=== PATIENT | male | born 1975 | race Caucasian/White ===

== ENCOUNTER 2025-06-18 20:16 | Emergency (ER) | payer BC ==
[2025-06-18] MEDS ORDERED: ONDANSETRON 4 MG/2 ML VIAL ONE (20:41)
[2025-06-18] MEDS ORDERED: NA CHLORIDE 0.9% 1,000 ML ONE (20:42)
[2025-06-18] MEDS ORDERED: KETOROLAC 30 MG/ML INJ ONE (20:42)
[2025-06-18 21:06] LABS: Absolute Lymphocytes (CBC) 1.0 K/uL (0.7-4.9); Hematocrit 45.6 % (39.6-49.0); Hemoglobin 15.3 g/dL (13.6-17.9); MCH 30.7 pg (27.0-35.0); MCHC 33.6 g/dL (32.0-36.0); MCV 91.2 fL (80-100); MPV 8.0 fL (7.6-11.3); Nucleated RBC Absolute Count 0.0 (0-0); Nucleated Red Blood Cells % 0.0 % (0-0); RBC Red Blood Cell Count 5.00 M/uL (4.33-5.43); White Blood Count 10.40 thou/uL (4.3-10.9)
[2025-06-18 21:38] LABS: ALT/SGPT 17 U/L (16-61); Albumin 3.4 g/dL (3.4-5.0); Albumin/Globulin Ratio 0.8 (1.1-1.8); Alkaline Phosphatase 75 U/L (45-117); Anion Gap 8.1 mEq/L (5.0-15.0); BUN Blood Urea Nitrogen 10 mg/dL (7-18); Globulin 4.2 g/dL (2.3-3.5); Glucose Level 122 mg/dL (74-106); Lipase 46 U/L (13-75); Potassium 4.1 mEq/L (3.5-5.1)
[2025-06-18 21:39] LABS: AST/SGOT < 10 U/L (15-37)
--- NOTE | 2025-06-18 22:01 | RAD REPORT ---
EXAMINATION: US Abdomen Exam Limited CLINICAL HISTORY: [facility] MAIN pain COMPARISON: None. TECHNIQUE: Limited upper abdominal grayscale and color flow sonographic images. FINDINGS: Gallbladder: Small echogenic calculi and sludge. Gallbladder wall is not thickened, 2 mm. No perichol ecystic fluid. Negative sonographic Huerta sign. Bile ducts: No intrahepatic or extrahepatic biliary dilatation. Common bile duct measures 4 mm. Liver: Visualized portions of the liver demonstrate normal echogenicity with no suspicious findings. Fluid: No ascites. IMPRESSION: Small gallbladder calculi and sludge. No other findings to suggest acute cholecystitis.
--- NOTE | 2025-06-18 22:06 | RAD REPORT ---
EXAMINATION: CT Stone Protocol CLINICAL INDICATION: Male, 50 years old. pain TECHNIQUE: CT abdomen and pelvis was performed, without IV contrast, as per department protocol. Axia l, sagittal and coronal reconstructions were obtained. One or more of the following dose reduction techniques were used: Automated exposure control, adjustment of the mA and kV according to the patien t size, and iterative reconstruction. Unless otherwise specified, incidental findings do not require dedicated imaging follow-up. COMPARISON: No prior exam. FINDINGS: The lack of intravenous contrast limits the sensitivity of this exam for evaluation of solid visceral organs, vascular structures, and retroperitoneum. LOWER CHEST: Trace layering right pleural effusion. Dependent subsegmental airspace opacities. LIVER: Normal in size and contour. No focal lesion. BILIARY SYSTEM: No suspicious abnormalities. SPLEEN: Normal size. No focal lesion. PANCREAS: No mass, ductal dilation, or julia-pancreatic fluid. ADRENALS: Normal; no mass. KIDNEYS AND URETERS: Normal size and contour. No hydronephrosis. URINARY BLADDER: Normal contour. GASTROINTESTINAL TRACT: Sequelae of gastric bypass with moderate sliding hiatal hernia. No evidence o f bowel obstruction, significant free fluid, free air or abscess. Mild sigmoid diverticulosis without evidence of acute diverticulitis. APPENDIX: Normal appendix. LYMPH NODES: No lymphadenopathy. MUSCULOSKELETAL: No acute or suspicious osseous abnormality. ADDITIONAL FINDINGS: None. IMPRESSION: No acute or concerning abnormalities in the abdomen or pelvis, with evaluation limited by lack of IV contrast. No evidence of urinary tract calculi or obstruction. Incidental findings as above, including small right layering pleural effusion with underlying airspac e opacities that could reflect atelectasis or mild pneumonitis.
[2025-06-18 22:36] LABS: Sqamous Epithelial <5 /HPF (None Seen); Urine Culture Reflex Order NOT NEEDED; Urine Microscopic Reflex YN ORDER UMIC
--- NOTE | 2025-06-19 00:58 | EDPHYS ---
Physician Documentation [facility] Name: Migel Urbano Jr Age: 50 yrs Sex: Male : 1975 Arrival Date: 06/18/2025 Time: 20:16 Bed 14 Private MD: ED Physician Deyvi Wray HPI: 06/18 20:36 This 50 yrs old Male presents to ER via Unassigned with complaints of Back Pain, kb Abdominal Pain. 20:36 Patient is a 50-year-old male who presents for right upper quadrant and right flank kb pain. States he had this pain 7 days ago, was seen by PCP and given Toradol and prednisone which took the pain away. States he woke up this morning and the pain was back. Went to neck several urgent care and they told him he had a fever so he needed to come here for evaluation. Denies nausea, vomiting, urinary symptoms. States he has had some diarrhea. States pain improves with pressure. Historical: - Allergies: 20:38 Sulfa (Sulfonamide Antibiotics); ha1 - PMHx: 20:38 Atrial fibrillation; ha1 - Immunization history:: Adult Immunizations up to date. - Infectious Disease History:: Denies. - Social history:: Smoking status: Patient denies any tobacco usage or history of. ROS: 20:36 Constitutional: As per HPI kb Exam: 20:36 Constitutional: This is a well developed, well nourished patient who is awake, alert, kb and in no acute distress. Head/Face: Normocephalic, atraumatic. ENT: Moist Mucous membranes Cardiovascular: Regular rate Respiratory: Respirations even and unlabored. No increased work of breathing. Talking in full sentences Skin: Warm, dry with normal turgor. Normal color. MS/ Extremity: Pulses equal, no cyanosis. Neurovascular intact. Full, normal range of motion. Neuro: Awake and alert, GCS 15, oriented to person, place, time, and situation. 20:36 Abdomen/GI: Inspection: abdomen appears normal, Bowel sounds: normal, Palpation: soft, in all quadrants, mild abdominal tenderness, in the right upper quadrant, 20:36 Back: CVA tenderness, that is mild, is noted on the right, Vital Signs: 20:30 BP 143 / 84; Pulse 92; Resp 17 S; Temp 99.3(O); Pulse Ox 98% on R/A; Weight 111.13 kg; ha1 Height 5 ft. 11 in. ; Pain 7/10; 20:59 BP 127 / 80; Pulse 80; Resp 20; Pulse Ox 100% on R/A; kj2 22:24 BP 113 / 72; Pulse 71; Resp 18; Pulse Ox 98% on R/A; kj2 23:00 BP 120 / 79; Pulse 70; Resp 18; Pulse Ox 97% on R/A; al5 23:15 BP 125 / 87; Pulse 75; Resp 16; Pulse Ox 98% on R/A; al5 20:30 Body Mass Index 34.17 (111.13 kg, 180.34 cm) ha1 20:30 Pain Scale: Adult ha1 MDM: 20:24 Medical Screening Exam initiated kb 20:37 Data reviewed: vital signs, nurses notes. kb 23:03 Differential diagnosis: UTI, kidney stone, cholelithiasis, cholecystitis, muscle kb strain. Counseling: I had a detailed discussion with the patient and/or guardian regarding the historical points, exam findings, and any diagnostic results supporting the discharge/admit diagnosis, lab results, radiology results, the need for outpatient follow up, a family practitioner, to return to the emergency department if symptoms worsen or persist or if there are any questions or concerns that arise at home. ED course: Pt has no cough, congestion or shortness of breath. 06/18 20:35 Order name: IV Saline Lock; Complete Time: 20:51 kb 06/18 20:35 Order name: Labs collected and sent; Complete Time: 20:51 kb Administered Medications: 20:49 Drug: Ondansetron IVP 4 mg IVP once; over 2 minutes Route: IVP; Site: right antecubital;kj2 23:26 Follow up: Response: No adverse reaction al5 20:49 Drug: NS 0.9% IV 1000 ml IV at 1 bolus Per protocol; to be given as a bolus over 60 kj2 minutes Route: IV; Rate: 1 bolus; Site: right antecubital; 23:26 Follow up: Response: No adverse reaction; IV Status: Completed infusion; IV Intake: al5 1000ml 20:50 Drug: TORadol - Ketorolac IVP 15 mg IVP once Route: IVP; Site: right antecubital; kj2 23:27 Follow up: Response: No adverse reaction al5 23:26 Drug: Decadron - Dexamethasone IVP 10 mg IVP once Route: IVP; Site: right antecubital; al5 23:26 Follow up: Response: No adverse reaction al5 Disposition: 06/19 01:15 Co-signature as Attending Physician, Deyvi Wray MD I agree with the assessment sp4 and plan of care. I reviewed the patient's care provided by the Advanced Practice Provider and agree with the diagnosis and treatment plan. Disposition Summary: 06/18/25 23:08 Discharge Ordered Notes: Location: Home kb Condition: Stable kb Diagnosis - Other cholelithiasis without obstruction kb - flank pain kb Followup: kb - With: Emergency Department - When: As needed - Reason: Worsening of condition Followup: kb - With: Private Physician - When: 2 - 3 days - Reason: Recheck today's complaints, Continuance of care, Re-evaluation by your physician Discharge Instructions: - Discharge Summary Sheet kb - Cholelithiasis, [id number] kb - Flank Pain, Adult, [id number] kb Forms: - Medication Reconciliation Form kb - Antibiotic Education kb - Prescription Opioid Use kb - Patient Portal Instructions kb - Leadership Thank You Letter kb Prescriptions: - Diclofenac Sodium 75 mg Oral tablet, delayed release (enteric coated) - take 1 tablet ORAL route 2 times per day As needed; 30 tablet; Refills: 0, kb Product Selection Permitted - orphenadrine citrate 100 mg Oral Tablet Sustained Release - take 1 tablet ORAL route 2 times per day As needed; 20 tablet; Refills: 0, kb Product Selection Permitted Signatures: Tawny Mathis FNP-C FNP-Zuly Washburn, RN RN ha1 Deyvi Wray MD MD sp4 Dianne Vaz RN RN al5 Judy Rasheed RN RN kj2 Corrections: (The following items were deleted from the chart) 06/18 20:39 20:38 Allergies: No Known Allergies; ha1 ha1 23:04 20:36 Patient is a 50-year-old male who presents for right upper quadrant and right kb flank pain. States he had this pain 7 days ago, was seen by PCP and given Toradol and prednisone which took the pain away. States he woke up this morning and the pain was back. Went to neck several urgent care and they told him he had a fever so he needed to come here for evaluation. Denies nausea, vomiting, urinary symptoms. States he has had some diarrhea.. kb
--- NOTE | 2025-06-19 00:58 | ER ---
Nurse's Notes [facility] Name: Migel Urbano Jr Age: 50 yrs Sex: Male : 1975 Arrival Date: 06/18/2025 Time: 20:16 Bed 14 Private MD: Diagnosis: Other cholelithiasis without obstruction;flank pain Presentation: 06/18 20:30 Chief complaint: Patient states: RIGHT FLANK PAIN STARTED LAST WEEK, PRIMARY CARE GAVE ha1 TORADOL AND PREDNISONE SYMPTOMS IMPROVED FOR FEW DAYS THEN YESTERDAYS SYMPTOMS CAME BACK AND ARE WORSE. 20:30 Coronavirus screen: Client denies travel out of the [place] in the last 14 days. Ebola ha1 Screen: No symptoms or risks identified at this time. Initial Sepsis Screen: Does the patient meet any 2 criteria? No. Patient's initial sepsis screen is negative. Does the patient have a suspected source of infection? No. Patient's initial sepsis screen is negative. Risk Assessment: Do you want to hurt yourself or someone else? Patient reports no desire to harm self or others. Onset of symptoms was June 18, 2025. 20:30 Method Of Arrival: Ambulatory ha1 20:30 Acuity: YULIANA 3 ha1 Triage Assessment: 20:38 General: Appears uncomfortable, Behavior is calm, cooperative. Pain: Complains of pain ha1 in posterior aspect of left lateral abdomen Pain currently is 7 out of 10 on a pain scale. Neuro: Level of Consciousness is awake, alert, obeys commands, Oriented to person, place, time, situation. Cardiovascular: Patient's skin is warm and dry. Respiratory: Airway is patent Respiratory effort is even, unlabored, Respiratory pattern is regular, symmetrical. Historical: - Allergies: 20:38 Sulfa (Sulfonamide Antibiotics); ha1 - PMHx: 20:38 Atrial fibrillation; ha1 - Immunization history:: Adult Immunizations up to date. - Infectious Disease History:: Denies. - Social history:: Smoking status: Patient denies any tobacco usage or history of. Screenin:58 [facility] ED Fall Risk Assessment (Adult) History of falling in the last 3 months, kj2 including since admission No falls in past 3 months (0 pts) Confusion or Disorientation No (0 pts) Intoxicated or Sedated No (0 pts) Impaired Gait No (0 pts) Mobility Assist Device Used No (0 pt) Altered Elimination No (0 pt) Score/Fall Risk Level 0 - 2 = Low Risk Maintained a safe environment, Hourly rounding (assess needs \T\ fall precautionary measures) done. Abuse screen: Denies threats or abuse. Denies injuries from another. Nutritional screening: No deficits noted. Tuberculosis screening: No symptoms or risk factors identified. Assessment: 20:45 General: Appears in no apparent distress. Behavior is cooperative. Pain: Complains of kj2 pain in abdomen and posterior aspect of left lateral abdomen and right upper quadrant Pain currently is 6 out of 10 on a pain scale. Neuro: Level of Consciousness is awake, alert, obeys commands, Oriented to person, place, time, situation. Cardiovascular: Patient's skin is warm and dry. Respiratory: Airway is patent Respiratory effort is unlabored. GI: Abdomen is non-distended. : No signs and/or symptoms were reported regarding the genitourinary system. 21:45 Reassessment: Patient appears in no apparent distress at this time. Patient and/or kj2 family updated on plan of care and expected duration. Pain level reassessed. Patient is alert, oriented x 3, equal unlabored respirations, skin warm/dry/pink. Vital Signs: 20:30 BP 143 / 84; Pulse 92; Resp 17 S; Temp 99.3(O); Pulse Ox 98% on R/A; Weight 111.13 kg; ha1 Height 5 ft. 11 in. ; Pain 7/10; 20:59 BP 127 / 80; Pulse 80; Resp 20; Pulse Ox 100% on R/A; kj2 22:24 BP 113 / 72; Pulse 71; Resp 18; Pulse Ox 98% on R/A; kj2 23:00 BP 120 / 79; Pulse 70; Resp 18; Pulse Ox 97% on R/A; al5 23:15 BP 125 / 87; Pulse 75; Resp 16; Pulse Ox 98% on R/A; al5 20:30 Body Mass Index 34.17 (111.13 kg, 180.34 cm) ha1 20:30 Pain Scale: Adult ha1 ED Course: 20:18 Patient arrived in ED. mr 20:24 Tawny Mathis [facility]-C [facility] kb 20:24 Deyvi Wray MD is Attending Physician. kb 20:38 Wili, Judy, RN is Primary Nurse. kj2 20:38 Triage completed. ha1 20:58 Patient has correct armband on for positive identification. Bed in low position. Call kj2 light in reach. Provided Education on: call light. 23:27 No provider procedures requiring assistance completed. IV discontinued, intact, al5 bleeding controlled, No redness/swelling at site. Pressure dressing applied. Administered Medications: 20:49 Drug: Ondansetron IVP 4 mg IVP once; over 2 minutes Route: IVP; Site: right antecubital;kj2 23:26 Follow up: Response: No adverse reaction al5 20:49 Drug: NS 0.9% IV 1000 ml IV at 1 bolus Per protocol; to be given as a bolus over 60 kj2 minutes Route: IV; Rate: 1 bolus; Site: right antecubital; 23:26 Follow up: Response: No adverse reaction; IV Status: Completed infusion; IV Intake: al5 1000ml 20:50 Drug: TORadol - Ketorolac IVP 15 mg IVP once Route: IVP; Site: right antecubital; kj2 23:27 Follow up: Response: No adverse reaction al5 23:26 Drug: Decadron - Dexamethasone IVP 10 mg IVP once Route: IVP; Site: right antecubital; al5 23:26 Follow up: Response: No adverse reaction al5 Medication: 23:27 VIS not applicable for this client. al5 Intake: 23:26 IV: 1000ml; Total: 1000ml. al5 Outcome: 23:08 Discharge ordered by . demetra 23:27 Discharged to home ambulatory, al5 23:27 Condition: good 23:27 Discharge instructions given to patient, Instructed on discharge instructions, follow up and referral plans. medication usage, Demonstrated understanding of instructions, follow-up care, medications, Prescriptions given X 2, 23:28 Patient left the ED. al5 Signatures: Tawny Mathis, ILAN-C RIGHT OF WAY APPRAISER-Chayito Flores, Sebastian Cortes mr Zuly Hagen, RN RN ha1 Dianne Vaz RN RN al5 Judy Rasheed, RN RN kj2 Corrections: (The following items were deleted from the chart) 20:39 20:38 Allergies: No Known Allergies; ha1 ha1
[2025-06-19 06:12] VITALS: TEMP 99.3
[2025-06-19 06:19] VITALS: BP 125/87; O2SAT 98
== END 2025-06-18 23:28 | disposition home or self-care (01) ==
LOC: ER 20:16
DX: K80.80 Other cholelithiasis without obstruction (principal); I48.91 Unspecified atrial fibrillation; Z88.2 Allergy status to sulfonamides
CPT/HCPCS: 85025; 81001; 36415; 83690; 80053; 76377; 74176; 76705; J1100; J2405; J7030; 96361; 96374; 96375; 99284